=== PATIENT | male | born 1975 | race Two or more races ===

== ENCOUNTER 2022-12-13 08:07 | Emergency (ER) | payer OTHER ==
[~2022-12-13] VITALS: Ht 177.8 cm; Wt 98.4 kg
[2022-12-13 08:10] VITALS: BP 120/80
--- NOTE | 2022-12-13 08:17 | NUR ---
Patient ambuated to bed 5.
--- NOTE | 2022-12-13 08:23 | NUR ---
Patient being evaluated by physician at bedside.
[2022-12-13] MEDS ORDERED: KETOROLAC 30 MG/ML VIAL IM ONE (08:30)
[2022-12-13] MEDS ORDERED: cephALEXin 500 MG CAP PO ONE (08:30)
[2022-12-13] MEDS ORDERED: SULFAMETH/TRIMETH DS 800/160MG 1 TAB PO ONE (08:30)
[2022-12-13] MEDS ORDERED: BACTO TP (08:31)
[2022-12-13] MEDS ORDERED: NAPR-54 PO (08:31)
[2022-12-13] MEDS ORDERED: SULF-59 PO (08:31)
[2022-12-13] MEDS ORDERED: CEPH-588 PO (08:31)
--- NOTE | 2022-12-13 08:52 | NUR ---
X-Ray at bedside.
--- NOTE | 2022-12-13 09:33 | NUR ---
STUDENT APPLIED BANDAGE TO LEFT FOOT PER MD. ORDERS.
--- NOTE | 2022-12-13 09:45 | NUR ---
PT. FITTED WITH ORTHO SHOE PER MD ORDER. PT. WITH STEADY GAIT. NO DIFF. WALKING
--- NOTE | 2022-12-13 09:54 | NUR ---
Patient discharged with v/s stable. Written and verbal after care instructions given and explained. Patient alert, oriented and verbalized understanding of instructions. Ambulatory with steady gait. All questions addressed prior to discharge. ID band removed. Patient advised to follow up with PMD. Rx of BACTROBAN, KEFLEX, NAPROSYN,BACTRIM DS TABLET given. Patient educated on indication of medication including possible reaction and side effects. Opportunity to ask questions provided and answered.
[2022-12-13 09:55] VITALS: BP 120/80
== END 2022-12-13 09:54 | disposition home or self-care (01) ==
LOC: MED 08:07
DX: L03.115 Cellulitis of right lower limb (principal); Z79.899 Other long term (current) drug therapy
CPT/HCPCS: 73630; 87070; 87075; 87205; 96372; 99284; J1885; Q0092

== ENCOUNTER 2023-02-01 05:21 | Inpatient (IN) | payer OTHER ==
[~2023-02-01] VITALS: Ht 177.8 cm; Wt 98.0 kg
[~2023-02-01 05:21] MED LIST: BACTO TP; CEPH-588 PO; NAPR-54 PO; SULF-59 PO
[2023-02-01 05:23] VITALS: BP 131/90; PULSE 86; RESP 17; TEMP 98.2; O2SAT 100
--- NOTE | 2023-02-01 05:23 | NUR ---
to bed via wheelchair
[2023-02-01] MEDS ORDERED: NACL 0.9% 1,000 ML IV SCH (05:30)
[2023-02-01] MEDS ORDERED: cefTRIAXone 1,000 MG in DEXT 5% MINI-BAG PLUS 50 ML IV ONE (05:30)
--- NOTE | 2023-02-01 06:16 | NUR ---
PATIENT IS A 48/M WHO CAME IN DUE TO CHRONIC LEFT FOOT PAIN X MONTHS AGO. PATIENT HAS A CHRONIC, INFECTED WOUND ON THE LEFT FOOT WHICH WORSENED DESPITE ORAL ANTIBIOTIC INTAKE. PMHX: DENIES ALLERGIES: SHELLFISH
--- NOTE | 2023-02-01 06:46 | NUR ---
PT MOVED TO BED #11
[2023-02-01 06:52] LABS: BASOPHILS # (AUTO) 0.1 K/uL (0.00-0.22); BASOPHILS % (AUTO) 0.9 % (0.0-2.0); EOSINOPHILS # (AUTO) 0.5 K/uL (0-0.4); EOSINOPHILS % (AUTO) 7.1 % (0.0-4.0); HEMATOCRIT 35.1 % (36-52); HEMOGLOBIN 12.2 g/dL (12.0-18.0); LYMPHOCYTES # (AUTO) 2.4 K/uL (2.0-11.5); LYMPHOCYTES % (AUTO) 34.2 % (20.5-51.1); MEAN CORPUSCULAR HEMOGLOBIN 30 pg (27-31); MEAN CORPUSCULAR HGB CONC 35 g/dL (33-37); MEAN CORPUSCULAR VOLUME 86.5 fL (80-94); MONOCYTES # (AUTO) 0.8 K/uL (0.8-1.0); MONOCYTES % (AUTO) 11.8 % (1.7-9.3); NEUTROPHILS # (AUTO) 3.2 K/uL (1.8-7.7); PLATELET COUNT (AUTO) 301 K/uL (140-450); RED BLOOD CELL COUNT(AUTO) 4.06 MIL/uL (4.20-6.10); RED CELL DISTRIBUTION WIDTH 13.3 % (11.6-13.7); WHITE BLOOD COUNT (AUTO) 6.9 K/uL (4.8-10.8)
[2023-02-01] MEDS ORDERED: cefTRIAXone 1,000 MG VIAL ONE (07:07)
[2023-02-01 07:16] LABS: ALBUMIN 3.3 g/dL (3.4-5.0); ANION GAP 12.3 (8-16); CARBON DIOXIDE 27.6 mmol/L (21-32); CREATININE 0.8 mg/dL (0.6-1.3); POTASSIUM 3.9 mmol/L (3.5-5.1); TOTAL BILIRUBIN 0.8 mg/dL (0.0-1.0)
--- NOTE | 2023-02-01 07:20 | NUR ---
Assumed care of pt. Stable condition. Pt sitting up in bed. A/OX4. Resp even and unlabored. No distress noted. Pt currently complaining of L foot pain. Second toe of L foot has pink dry exudate noted. Skin over foot and lower leg is slightly reddened. Swelling noted BLE. Rocephin IVPB concluded. NS infusing W/O. Will update pt on status once MD determines diagnosis.
[2023-02-01 08:00] VITALS: PULSE 73; RESP 18; O2SAT 99
[2023-02-01 08:58] VITALS: TEMP 98.1
[2023-02-01] MEDS ORDERED: ZOLPIDEM 5 MG TAB PO PRN (09:00)
[2023-02-01] MEDS ORDERED: IBUPROFEN 400 MG TAB PO PRN (09:00)
[2023-02-01] MEDS ORDERED: ENOXAPARIN 40 MG/0.4 ML SYR SUBQ SCH (09:00)
[2023-02-01] MEDS ORDERED: HYDROcodone/APAP 5/325 MG 1 TAB TAB PO PRN (09:00)
[2023-02-01] MEDS ORDERED: LORazepam 1 MG TAB PO PRN (09:00)
[2023-02-01] MEDS ORDERED: DOCUSATE SODIUM 100 MG GELCAP PO SCH (09:00)
[2023-02-01] MEDS ORDERED: ONDANSETRON 4 MG/2 ML VIAL IVP PRN (09:00)
[2023-02-01] MEDS ORDERED: ACETAMINOPHEN 325 MG TAB PO PRN (09:00)
--- NOTE | 2023-02-01 09:21 | NUR ---
X-Ray at bedside.
--- NOTE | 2023-02-01 09:22 | NUR ---
X-ray of left foot being performed at BS.
--- NOTE | 2023-02-01 09:48 | NUR ---
PER ERMD VETERINARY PHARMACOLOGIST CALLED TO BEDSIDE
[2023-02-01 09:50] VITALS: O2SAT 100
--- NOTE | 2023-02-01 09:50 | NUR ---
ADMITTING DX: SEIZURES; Viktor GOODRICH RCP AND Lino URIBE RCP ATTENDING; STABLE GOOD CHEST RISE BREATH SOUNDS POSTERIOR CLEAR BILATERAL SATURATION 98% HR 128 RR 32
--- NOTE | 2023-02-01 09:54 | NUR ---
PATIENT NOW PRESENTING WITH INCREASED ANXIETY AND DESCENDING SATURATION TO 91% PLACED ON SUPPLEMENTAL OXYGEN AT 6 LPM VIA MASK; INCREASED SATURATION TO 100% LESS THAN ONE MINUTE
--- NOTE | 2023-02-01 10:00 | NUR ---
SATURATION 100% ON SUPPLEMENTAL OXYGEN AT 6 LPM VIA MASK; TITRATED FIO2 TO ROOM AIR; ERMD AWARE
--- NOTE | 2023-02-01 10:02 | NUR ---
SATURATION 100% ON ROOM AIR
[2023-02-01 10:19] VITALS: BP 126/80; PULSE 76; RESP 18; O2SAT 97
--- NOTE | 2023-02-01 10:32 | NUR ---
UA sent to lab. Pt medicated as ordered. Report called to the floor by charge nurse. Pt taken by w/c to meds/surg room 104 B.
--- NOTE | 2023-02-01 10:38 | NUR ---
REPORT GIVEN TO ISAEL ZUNIGA, PT TX FOR 104B FOR CONTINUATION OF CARE. STABLE ON TX
[2023-02-01 11:03] LABS: BARBITURATE, URINE NEGATIVE ng/ml (NEG <=200); BENZODIAZEPINE, URINE NEGATIVE ng/mL (NEG <=200); CANNABINOID, URINE POSITIVE ng/mL (NEG <=50); COCAINE, URINE NEGATIVE ng/mL (NEG <=300); OPIATE, URINE NEGATIVE ng/mL (NEG <=2000); PHENCYCLIDINE SCREEN,URINE NEGATIVE ng/mL (NEG <=25)
--- NOTE | 2023-02-01 11:10 | NUR ---
GOT REPORT FROM THE ER NURSE, PT IN THE UNIT WITH CELLULITES OF BOTH LEGS, ASSESSMENT IS DONE AND V.S OBTAINED, ORIENTED THE THE NEW ROOM. CALL LIGHT IS GIVEN .[id number]
--- NOTE | 2023-02-01 13:20 | NUR ---
PT IS SO ABUSIVE TO THE NURSES BECAUSE HE SAID HIS LUNCH IS NOT ORDERED. OFFERED HIM SANDWICH AT MEAN TIME , HE SAID YOU HAD ALL THIS TIME AND YOU DID GET THE ORDER? YOU ARE INCOMPETENT NURSE , I DO NOT WANT THIS SANDWICH , AND HE PICKED THE SANDWICH AND THROW IT ON THE FLOOR , AND START SAYING COLORFUL WORDS (BAD) WORD SO I STEP OUT INFORMED THE CHARGE CHARGE NURSE KRISTOFER AND ALSO INFORMED DR BARTHOLOMEW, PT KEEP GETTING ANGRY CALLED THE SECURITY. TOLD HIM THAT HE CAN GO AMA YET HE DOES NOT WANT GABBY BUT HE WANTS TO SMOKE AND CAME BACK. WHEN WE TOLD HIM YOU CAN NOT DO THAT IT IS THE HOSPITAL POLICY. HE STAYED IN HIS ROOM UNTIL THE CAME, THE IS SO ABUSIVE CALLED ME ALL KINDS OF NAMES, FINALLY HE IS ABLE TO LEAVE WITHOUT SINGEING THE AMA, BUT I WAS ABLE TO TAKE THE IV AND ID BAND BEFORE HE IS TAKEN OUT BY W/C BY SECURITY.[id number]
--- NOTE | 2023-02-01 14:55 | NUR ---
C/O PT LEFT AMA WITHOUT SIGNING THE PAPER NOT ABLE TO FINISH THE DISCHARGE PAPER .[id number]
== END 2023-02-01 14:20 | disposition left against medical advice (07) | DRG 383 ==
LOC: MED 05:21 → MMU 09:06 → MTU 10:12
PROVIDERS: ADMIT Hospitalist; ATTEND Hospitalist
DX: L03.116 Cellulitis of left lower limb (principal); L97.529 Non-pressure chronic ulcer of other part of left foot with unspecified severity; F15.10 Other stimulant abuse, uncomplicated; Z91.013 Allergy to seafood; Z79.899 Other long term (current) drug therapy
CPT/HCPCS: 36415; 71045; 73620; 80053; 80305; 83605; 83880; 84484; 85025; 85651; 86140; 87040; 87081; J0696; J0713; J1650; J7060; Q0092

== ENCOUNTER 2023-02-03 04:15 | Inpatient (IN) | payer OTHER ==
[~2023-02-03] VITALS: Ht 177.8 cm; Wt 97.5 kg
[2023-02-03 04:20] VITALS: BP 133/90; PULSE 81; RESP 16; TEMP 98.2; O2SAT 99
--- NOTE | 2023-02-03 04:20 | NUR ---
TO BED AMBULATORY
--- NOTE | 2023-02-03 04:30 | NUR ---
48 F, ambulatory from home with c/o worsening L foot pain and swelling x2 months. Pt was admitted on 02/01 for cellulitis, but eloped from hospital. Pt states pain and swelling have worsened.
--- NOTE | 2023-02-03 04:41 | NUR ---
Dr. Murry examining patient.
[2023-02-03] MEDS ORDERED: VANCOMYCIN 1,000 MG in DEXTROSE 5% 250 ML IV ONE (05:30)
[2023-02-03 05:33] LABS: BASOPHILS # (AUTO) 0.2 K/uL (0.00-0.22); BASOPHILS % (AUTO) 2.3 % (0.0-2.0); EOSINOPHILS # (AUTO) 0.5 K/uL (0-0.4); EOSINOPHILS % (AUTO) 6.4 % (0.0-4.0); HEMATOCRIT 37.5 % (36-52); HEMOGLOBIN 13.3 g/dL (12.0-18.0); LYMPHOCYTES % (AUTO) 39.3 % (20.5-51.1); MEAN CORPUSCULAR HEMOGLOBIN 30 pg (27-31); MEAN CORPUSCULAR HGB CONC 35 g/dL (33-37); MONOCYTES # (AUTO) 0.7 K/uL (0.8-1.0); MONOCYTES % (AUTO) 8.6 % (1.7-9.3); NEUTROPHILS # (AUTO) 3.3 K/uL (1.8-7.7); NEUTROPHILS % (AUTO) 43.4 % (42.2-75.2); PLATELET COUNT (AUTO) 329 K/uL (140-450); RED BLOOD CELL COUNT(AUTO) 4.36 MIL/uL (4.20-6.10); RED CELL DISTRIBUTION WIDTH 13.6 % (11.6-13.7); WHITE BLOOD COUNT (AUTO) 7.6 K/uL (4.8-10.8)
[2023-02-03 05:51] LABS: ALBUMIN 3.7 g/dL (3.4-5.0); ANION GAP 11.7 (8-16); CARBON DIOXIDE 28.3 mmol/L (21-32); CREATININE 0.8 mg/dL (0.6-1.3); TOTAL BILIRUBIN 0.5 mg/dL (0.0-1.0)
--- NOTE | 2023-02-03 05:56 | NUR ---
Dr. Ortiz examining patient.
[2023-02-03] MEDS ORDERED: VANCOMYCIN 1,000 MG VIAL ONE (06:16)
[2023-02-03] MEDS ORDERED: MAG SULF 2000 MG/WATER PREMIX 50 ML IV PRN (06:35)
[2023-02-03] MEDS ORDERED: KCL 20 MEQ IN 100 mL PREMIX 200 ML IV PRN (06:35)
[2023-02-03] MEDS ORDERED: POTASSIUM CHLORIDE 10 MEQ TABER PO PRN (06:35)
[2023-02-03] MEDS ORDERED: MAGNESIUM OXIDE 400 MG TAB PO PRN (06:35)
[2023-02-03] MEDS ORDERED: VANCOMYCIN PER PHARMACY MC PRN (06:35)
[2023-02-03] MEDS ORDERED: ACETAMINOPHEN 325 MG TAB PO PRN (06:35)
--- NOTE | 2023-02-03 06:55 | NUR ---
Pt denies taking any home medications.
[2023-02-03 07:49] VITALS: O2SAT 95
--- NOTE | 2023-02-03 08:04 | NUR ---
Revieved report from EFRAIN Prieto 48 M, ambulatory from home with c/o worsening L foot pain and swelling x2 months. Pt was admitted on 02/01 for cellulitis, but eloped from hospital. Pt states pain and swelling have worsened. Pts vitals wnl. Pt states he is in pain. made aware. Pt has been cleared for transfer to [place]. Waiting for a room.
[2023-02-03] MEDS: MORPHINE SULFATE 2 MG/ML SYR IVP PRN ×2 (08:22→23:10)
--- NOTE | 2023-02-03 08:30 | NUR ---
PT HAS BEEN MEDICATED PER PROVIDERS ORDES
[2023-02-03] MEDS ORDERED: cefTRIAXone 1,000 MG VIAL ONE (08:51)
[2023-02-03] MEDS: ENOXAPARIN 40 MG/0.4 ML SYR SUBQ SCH (09:00)
--- NOTE | 2023-02-03 09:00 | NUR ---
PT HAS BEEN UPDATED ON PLAN OF CARE. PT STATES MEDICATION HAS WORKED FOR PAIN AND HAS A CLEAR UNDERSTANDING OF PLAN OF CARE.
--- NOTE | 2023-02-03 09:30 | NUR ---
RECEIVED PATIENT FROM ED ON WHEEL CHAIR
--- NOTE | 2023-02-03 09:47 | NUR ---
Pt report given to EFRAIN GLASS. Transfer of care at 0930
[2023-02-03] MEDS: VANCOMYCIN 1.25GM PREMIX 250 ML IV SCH ×2 (14:23→21:46)
[2023-02-03 16:00] VITALS: BP 128/84; RESP 16; TEMP 208.8; O2SAT 96
[2023-02-03 17:03] VITALS: RESP 20
--- NOTE | 2023-02-03 19:24 | NUR ---
ENDORSED PATIENT TO PM NURSE FOR CONTINUITY OF CARE. PATIENT ON BED ASLEEP, NORMAL RISE AND FALL OF CHEST
--- NOTE | 2023-02-03 19:30 | NUR ---
RECEIVED REPORT FROM DAY SHIFT NURSE QUAN FOR CONTINUITY OF CARE. PATIENT IS A&O X4. PATIENT IS ON ROOM AIR, BREATHING IS NORMAL WITH SYMMETRICAL RISE AND FALL OF CHEST. IV IS A 18G LFA; RUNNING 5ML NS TKO. PATIENT IS SLEEPING IN HIGH-FOWLERS POSITION. BED IS IN LOWEST POSITION, WHEELS LOCKED CALL LIGHT IN PLACE. WILL CONTINUE TO OBSERVE PATIENT.
[2023-02-03 20:00] VITALS: BP 128/82; PULSE 78; RESP 18; RESP 78; TEMP 97.5; O2SAT 99
--- NOTE | 2023-02-04 00:14 | NUR ---
PATIENT CALLED REQUESTING PAIN MEDICATION AT 0000 FOR L FOOT PAIN. CHECKED PATIENT'S VITALS AND CHART, MORPHINE WAS APPROPRIATE TO ADMINISTER. MEDICATION WAS ADMINISTERED SUCCESSFULLY WITHOUT ANY ISSUE WITH IV. WENT INTO PATIENT'S ROOM TO REASSESS PAIN; PATIENT WAS SLEEPING. MEDICATION WAS SUCCESSFUL. BREATHING WAS NORMAL WITH SYMMETRICAL RISE AND FALL OF CHEST. WILL CONTINUE TO OBSERVE PATIENT.
--- NOTE | 2023-02-04 02:20 | NUR ---
LOOKED IN ON PATIENT. PATIENT WAS SLEEPING, BREATHING WAS NORMAL WITH SYMMETRICAL RISE AND FALL OF CHEST. IV IS RUNNING TKO. WILL CONTINUE TO OBSERVE PATIENT.
[2023-02-04 04:00] VITALS: BP 110/68; PULSE 69; RESP 18; TEMP 97.9; O2SAT 98
[2023-02-04] MEDS: VANCOMYCIN 1.25GM PREMIX 250 ML IV SCH ×3 (05:32→21:46)
--- NOTE | 2023-02-04 05:40 | NUR ---
WENT INTO PATIENT'S ROOM AND ADMINISTERED 0500 IVPB. MEDICATION STARTED SUCCESSFULLY WITHOUT ANY ISSUES WITH IV. PATIENT IS SLEEPING; BREATHING IS NORMAL WITH SYMMETRICAL RISE AND FALL OF CHEST. WILL CONTINUE TO OBSERVE PATIENT.
[2023-02-04 05:43] LABS: BASOPHILS # (AUTO) 0.1 K/uL (0.00-0.22); BASOPHILS % (AUTO) 1.6 % (0.0-2.0); EOSINOPHILS # (AUTO) 0.8 K/uL (0-0.4); EOSINOPHILS % (AUTO) 9.5 % (0.0-4.0); HEMATOCRIT 37.5 % (36-52); LYMPHOCYTES # (AUTO) 2.7 K/uL (2.0-11.5); LYMPHOCYTES % (AUTO) 31.6 % (20.5-51.1); MEAN CORPUSCULAR HEMOGLOBIN 30 pg (27-31); MEAN CORPUSCULAR HGB CONC 35 g/dL (33-37); MEAN CORPUSCULAR VOLUME 87.2 fL (80-94); MONOCYTES # (AUTO) 0.8 K/uL (0.8-1.0); NEUTROPHILS # (AUTO) 4.2 K/uL (1.8-7.7); NEUTROPHILS % (AUTO) 48.3 % (42.2-75.2); PLATELET COUNT (AUTO) 316 K/uL (140-450); RED CELL DISTRIBUTION WIDTH 13.5 % (11.6-13.7); WHITE BLOOD COUNT (AUTO) 8.6 K/uL (4.8-10.8)
[2023-02-04 06:02] LABS: ANION GAP 9.8 (8-16); CARBON DIOXIDE 28.9 mmol/L (21-32); CREATININE 0.8 mg/dL (0.6-1.3); MAGNESIUM 1.9 mg/dL (1.8-2.4); POTASSIUM 3.7 mmol/L (3.5-5.1); TOTAL BILIRUBIN 0.5 mg/dL (0.0-1.0)
--- NOTE | 2023-02-04 07:32 | NUR ---
RECEIVED REPORT FROM STEWARD/STEWARDESS DINING ROOM NURSE, MARIA ESTHER, FOR CONTINUITY OF CARE. PT IN BED WATCHING TELEVISION AT THIS TIME. RESPIRATIONS ARE EVEN AND UNLABORED ON ROOM AIR. NO SIGNS OF DISTRESS NOTED. PT IS ALERT AND ORIENTED X4, ABLE TO FOLLOW COMMANDS, ABLE TO VERBALIZE NEEDS. PT IS ON REGULAR DIET, ABD IS NONTENDER, NONDISTENDED WITH BOWEL SOUNDS PRESENT IN ALL QUADRANTS. PER STEWARD/STEWARDESS DINING ROOM NURSE, PT HAD BOWEL MOVEMENT LAST NIGHT 02/03/23. PT IS CONTINENT OF BOWEL AND BLADDER, ABLE TO AMBULATE TO REST ROOM INDEPENDENTLY. CALL LIGHT WITHIN REACH. ALL SAFETY MEASURES IN PLACE.
[2023-02-04 08:00] VITALS: PULSE 69; RESP 18; TEMP 97; O2SAT 98
--- NOTE | 2023-02-04 08:04 | NUR ---
ENDORSED TO DAY SHIFT NURSE [place] FOR CONTINUITY OF CARE. PATIENT IS STABLE.
[2023-02-04] MEDS ORDERED: NICOTINE TRANSD SYS 21 MG/24 HR PATCH TD PRN (08:25)
--- NOTE | 2023-02-04 08:58 | NUR ---
PATIENT HAS BEEN SCREENED AND CATEGORIZED MODERATE NUTRITION RISK. PATIENT WILL BE SEEN WITHIN 3-5 DAYS OF ADMISSION. 02/06/23-02/08/[address]
[2023-02-04] MEDS: ENOXAPARIN 40 MG/0.4 ML SYR SUBQ SCH (09:22)
--- NOTE | 2023-02-04 09:25 | NUR ---
ADMINISTERED SCHEDULED MEDICATIONS. EDUCATED PT ON MEDS ADMINISTERED. PT VERBALIZED UNDERSTANDING.
--- NOTE | 2023-02-04 12:51 | NUR ---
LAB CALLED TO REPORT VANCO TROUGH OF 15.5, CALLED PHARMACY TO INFORM THEM. PER PHARMACY OK TO GIVE SCHEDULED DOSE OF VANCOMYCIN.
[2023-02-04] MEDS: HYDROcodone/APAP 5/325 MG 1 TAB TAB PO PRN ×2 (13:57→21:53)
--- NOTE | 2023-02-04 15:54 | NUR ---
Staff Internist Office Based Only AERONAUTICAL ENGINEER met with pt., conducted a discharge planning assessment and provided substance abuse resources. AERONAUTICAL ENGINEER introduced self to pt. who was agreeable to this interview. Pt. was soft spoken, maintained eye contact and answered questions appropriately. AERONAUTICAL ENGINEER inquired about the drug usage. Pt. stated he occasionally indulges, but his drug use is not a problem. He has been using since the age of 18. Pt. currently resides with his brother. AERONAUTICAL ENGINEER was able to confirm the demographics listed on the face sheet. Pt stated he does not have a PCP. AERONAUTICAL ENGINEER write down the contact info and his policy number, asked pt. to call and ask about his PCP.
[2023-02-04 16:00] VITALS: BP 106/66; PULSE 92; RESP 18; TEMP 97.9; O2SAT 98
--- NOTE | 2023-02-04 17:08 | NUR ---
PT CALLED NURSE, STATED HE WANTS TO GO HOME. ASKING NURSE TO CALL DR TO LET HIM GO HOME WITH HOME HEALTH FOR IV. DR OLVERA MADE AWARE. PER DR OLVERA, NO ORDERS TO DISCHARGE AT THIS TIME. IF PT WANTS TO DISCHARGE, HE MAY DO SO AMA. PT MADE AWARE. PT ARGUING WITH NURSE, ASKING WHY HE CANNOT JUST GO HOME WITH IV ABX. NURSE EDUCATED PT AGAIN ON AMA PROTOCOL. PT STATED "I HATE BEING IN HERE WITH THIS CHINO, ROOMMATE, WHO SMELLS LIKE SHIT. ITS DISGUSTING. JUST GIVE ME ANTIBIOTICS SO I CAN GO HOME. THIS IS STUPID". RE-EDUCATED PT ON WHAT DR OLVERA STATED. PT STATED "I NEED SOME TIME TO THINK THIS OVER. GIVE ME SOME TIME".
--- NOTE | 2023-02-04 19:13 | NUR ---
ENDORSED PT TO PRECAST CONCRETE IRONWORKER NURSE, FELICITAS, FOR CONTINUITY OF CARE. PT IS STABLE.
--- NOTE | 2023-02-04 19:15 | NUR ---
HAND-OFF REPORT RECEIVED FROM AFRICA [facility] FOLLOWED BY BED SIDE ROUNDS. ENDORSED: PT THREATENING TO GO AMA; HAS HX OF AMA AND ARGUING [facility]. RESTING IN BED AT PRESENT TIME OFFERS NO COMPLAINTS. LEFT FOOT CRUSTIE AND SCALES ALL TOES WITH SEROUS DRAINAGE DRIED. REMOVED SOCK WHICH WAS STUCK IN SOME AREAS. ENCOURAGED CONSTRUCTION ENGINEERING MANAGER AND COVER WHEN AMBULATING.
[2023-02-04 20:00] VITALS: PULSE 83; RESP 18; TEMP 98.8; O2SAT 98
--- NOTE | 2023-02-04 21:53 | NUR ---
MEDICATED WITH NORCOX1 FOOT PAIN
--- NOTE | 2023-02-04 23:53 | NUR ---
MEDICATED WITH MORPHINE 2MG IVP FOR L FOOT PAIN.
[2023-02-04] MEDS: MORPHINE SULFATE 2 MG/ML SYR IVP PRN (23:58)
--- NOTE | 2023-02-05 02:00 | NUR ---
STATED EYES SORE AND HOT AND COLD SPELLS. ICE PACK TO FOREHEAD. EXTRA BLANKET GIVEN 98.6 AFEBRILE.
--- NOTE | 2023-02-05 02:10 | NUR ---
C/O OF ROOMMATE. MOVED TO ROOM 111B
--- NOTE | 2023-02-05 02:53 | NUR ---
REFUSED IV. FLUIDS STOPPED. STATED CONT. EYE PAIN AND H/A. INFORMED UNABLE TO GET PAIN MED FOR 1 HOUR. CALLED FEMALE FRIEND TO COME TO HOSPITAL TO GET HIM. CONT. GATHERING PERSONAL ARTICLE.TO MONITOR.
--- NOTE | 2023-02-05 03:15 | NUR ---
PT VANDALIZED BED CONTROL PANEL AT FOOT OF BED, SCREAMING AND THROWING THINGS STATED DON'T TOUCH ME. SECURITY OBSERVED OUTSIDE OF LOBBY. IV REMOVED. REFUSED TO SIGN AMA. MD OCONNOR NOTIFIED.
== END 2023-02-05 03:15 | disposition left against medical advice (07) | DRG 383 ==
LOC: MED 04:15 → MMU 06:34 → MTU 10:25
PROVIDERS: ADMIT Internal Medicine; ATTEND Internal Medicine
DX: L03.116 Cellulitis of left lower limb (principal); E87.0 Hyperosmolality and hypernatremia; F15.90 Other stimulant use, unspecified, uncomplicated; Z53.29 Procedure and treatment not carried out because of patient's decision for other reasons; Z91.013 Allergy to seafood
CPT/HCPCS: 36415; 80053; 80202; 83605; 83735; 85025; 87040; 87081; 96365; 99285; J0696; J1650; J2270; J3370; J3372; J7060